=== PATIENT | female | born 1995 | race Caucasian/White ===

== ENCOUNTER 2017-10-24 10:08 | Inpatient (IN) | payer MEDICAID ==
[~2017-10-24] VITALS: Ht 157.5 cm; Wt 95.5 kg
[2017-10-24] VITALS (23 sets, daily range): BP systolic 86–128; BP diastolic 47–72
[2017-10-24 11:16] LABS: BASOPHILS % (AUTO) 0.3 % (0-1); EOSINOPHILS # (AUTO) 0.3 X10'3 (0-0.9); EOSINOPHILS % (AUTO) 1.8 % (0-6); HEMATOCRIT 43.7 % (35.0-45.0); HEMOGLOBIN 14.9 g/dl (12.0-16.0); LYMPHOCYTES # (AUTO) 1.5 X10'3 (1.1-4.8); LYMPHOCYTES % (AUTO) 10.5 % (21-51); MEAN CORPUSCULAR HGB CONC 34.1 % (33.0-36.5); MEAN CORPUSCULAR VOLUME 79.1 FL (78-98); MEAN PLATELET VOLUME 9.4 FL (7.4-10.4); MONOCYTES # (AUTO) 0.8 X10'3 (0-0.9); MONOCYTES % (AUTO) 5.6 % (2-12); NEUTROPHILS # (AUTO) 11.6 X10'3 (1.8-7.7); NEUTROPHILS % (AUTO) 81.8 % (42-75); PLATELET COUNT 208 X10'3 (140-440); RED BLOOD COUNT 5.53 X10'6 (4.20-5.60); RED CELL DISTRIBUTION WIDTH 15.2 % (11.5-14.5); WHITE BLOOD COUNT 14.1 X10'3 (4.5-11.0)
[2017-10-24 11:23] LABS: CLARITY,URINE CLOUDY (Clear); GLUCOSE, URINE NEGATIVE (Neg); KETONES,URINE >=80 mg/dl (Neg); LEUKOCYTE ESTERASE ,URINE MODERATE (Neg); NITRITES, URINE NEGATIVE (Neg); OCCULT BLOOD,URINE SMALL (Neg); PROTEIN,URINE 30 mg/dl (Neg)
[2017-10-24 11:27] LABS: COLOR,URINE DARK YELLOW (Yellow); UA COLLECTION TYPE CLN CATCH MIDSTREAM
[2017-10-24 11:27] LABS: PROTHROMBIN TIME 10.5 SECONDS (9.0-12.0)
[2017-10-24 11:32] LABS: ALANINE AMINOTRANSFERASE 28 U/L (12-78); ALBUMIN 3.9 G/DL (3.4-5.0); ALBUMIN/GLOBULIN RATIO 0.8 (1.1-1.5); ALKALINE PHOSPHATASE 62 IU/L (20-180); ANION GAP 12 (8-16); ASPARTATE AMINO TRANSFERASE 18 U/L (10-37); BILIRUBIN,TOTAL 1.4 MG/DL (0.1-1.0); BLOOD UREA NITROGEN 11 MG/DL (7-18); BUN/CREATININE RATIO 14.5 (6.6-38.0); CALCIUM 9.1 MG/DL (8.5-10.1); CHLORIDE 98 MMOL/L (99-107); CREATININE 0.76 MG/DL (0.40-0.90); GLUCOSE 102 MG/DL (70-104); POTASSIUM 4.2 MMOL/L (3.5-5.1); SODIUM 135 MMOL/L (135-145); TOTAL PROTEIN 8.5 G/DL (6.4-8.2); eGFR > 90 ML/MIN
[2017-10-24 11:33] LABS: BACTERIA,URINE 3+ /HPF (Neg); MUCUS STRANDS MANY /LPF (Neg); SQUAMOUS EPITHELIAL CELL,UR MANY /LPF (FEW)
[2017-10-24] MEDS ORDERED: morphine 4 MG/ML inj SYRINge IV ONE (12:35)
[2017-10-24] MEDS ORDERED: ondansetron/PF 4mg/2ml inj IV ONE (12:35)
[2017-10-24] MEDS ORDERED: normal saline 1000ML IV soln IVB ONE (12:35)
[2017-10-24] MEDS ORDERED: ketorolac tromethamine 15mg/ml inj. IV ONE (12:35)
[2017-10-24 12:59] LABS: URINE HCG NEGATIVE (NEG)
[2017-10-24] MEDS ORDERED: BUPIVAcaine/PF 2.5 mg/ml (0.25%) 30ml vial ONE (14:17)
[2017-10-24] MEDS ORDERED: ringers solution, lacted 1,000 ML IV SCH (14:38)
[2017-10-24] MEDS ORDERED: proCHLORperazine 10 MG/2 ml inj IV PRN (14:40)
[2017-10-24] MEDS ORDERED: meperidine/PF 50mg/ml syringe IV PRN ×3 (14:40)
[2017-10-24] MEDS ORDERED: morphine 4 MG/ML inj SYRINge IV PRN ×3 (14:40→18:10)
[2017-10-24] MEDS ORDERED: ondansetron/PF 4mg/2ml inj IV PRN (14:40)
[2017-10-24] MEDS ORDERED: fentaNYL/PF 50MCG/1 ML 2ML syringe ONE (14:46)
[2017-10-24] MEDS ORDERED: rocuronium 10mg/ml inj IV ONE (14:47)
[2017-10-24] MEDS ORDERED: midazolam 2 mg/2 ml injection ONE (14:47)
[2017-10-24] MEDS ORDERED: propofol inj 20 ML IV ONE (14:48)
[2017-10-24] MEDS ORDERED: ceFOXitin 1000 MG inj ONE ×2 (15:00)
[2017-10-24] MEDS ORDERED: glycopyrrolate 0.2mg/ml inj ONE (15:56)
[2017-10-24] MEDS ORDERED: neostigmine methylsulfate 1 MG/ML 10ml vial ONE (15:56)
[2017-10-24] MEDS ORDERED: ketorolac tromethamine 15mg/ml inj. IV PRN (16:05)
[2017-10-24] MEDS ORDERED: HYDROmorphone inj. 0.5 MG/0.5 ML DISP.SYRIN IV PRN (16:05)
[2017-10-24] MEDS ORDERED: acetaminophen 1,000mg/100ml IV 100 ML IV SCH (16:20)
[2017-10-24] MEDS: dextrose 5%-1/2 normal saline 1,000 ML IV SCH (18:09)
[2017-10-24] MEDS ORDERED: potassium Cl 40MEQ/NS 500ml 500 ML IV PRN ×2 (18:10)
[2017-10-24] MEDS ORDERED: mag hydrox/Alum hydrox/simeth 30ml oral suspension PO PRN (18:10)
[2017-10-24] MEDS ORDERED: potassium Cl 20 mEq SR tablet PO PRN ×2 (18:10)
[2017-10-24] MEDS ORDERED: magnesium 2GM in 50ml NS 50 ML IV PRN (18:10)
[2017-10-24] MEDS ORDERED: magnesium 4gm in 100ml NS 100 ML IV PRN (18:10)
[2017-10-24] MEDS ORDERED: acetaminophen 325mg tablet PO PRN (18:10)
[2017-10-24] MEDS ORDERED: magnesium Cl slow-release 64mg tablet PO PRN (18:10)
[2017-10-24] MEDS ORDERED: magnesium hydroxide 30ml (MOM) UD suspension PO PRN (18:10)
[2017-10-24] MEDS: ondansetron/PF 4mg/2ml inj IV PRN (20:00)
[2017-10-24] MEDS ORDERED: ceFOXitin 2 GM ADDvantage bag 100 ML IV SCH (20:00)
[2017-10-24] MEDS ORDERED: NO HOME MEDS (21:11)
[2017-10-24] MEDS: HYDROcodone/acetaminophen 10/325mg tab PO PRN (23:02)
[2017-10-24] MEDS: potassium CL 20mEq in D5-1/2NS 1,000 ML IV SCH (23:03)
[2017-10-25] VITALS: BP 111/55
[2017-10-25] MEDS: potassium CL 20mEq in D5-1/2NS 1,000 ML IV SCH ×2 (00:03→08:27)
[2017-10-25] MEDS: morphine 4 MG/ML inj SYRINge IV PRN ×2 (00:11→07:28)
[2017-10-25] MEDS: ceFOXitin 1 GM ADDVANTAGE BAG 1,000 MG in normal saline 100ml IV soln 100 ML IV SCH ×2 (00:30→08:26)
[2017-10-25] MEDS: dextrose 5%-1/2 normal saline 1,000 ML IV SCH ×3 (04:09→17:07)
[2017-10-25] MEDS: HYDROcodone/acetaminophen 10/325mg tab PO PRN ×2 (05:02→19:07)
[2017-10-25 05:05] VITALS: BP 113/69
[2017-10-25 05:31] LABS: BASOPHILS % (AUTO) 0.4 % (0-1); EOSINOPHILS % (AUTO) 0 % (0-6); HEMATOCRIT 30.6 % (35.0-45.0); HEMOGLOBIN 10.7 g/dl (12.0-16.0); LYMPHOCYTES % (AUTO) 11.8 % (21-51); MEAN CORPUSCULAR HEMOGLOBIN 27.9 PG (27.0-31.0); MEAN CORPUSCULAR HGB CONC 34.9 % (33.0-36.5); MEAN CORPUSCULAR VOLUME 80.1 FL (78-98); MEAN PLATELET VOLUME 10.1 FL (7.4-10.4); MONOCYTES # (AUTO) 0.5 X10'3 (0-0.9); MONOCYTES % (AUTO) 5.8 % (2-12); PLATELET COUNT 151 X10'3 (140-440); RED BLOOD COUNT 3.82 X10'6 (4.20-5.60); RED CELL DISTRIBUTION WIDTH 15.4 % (11.5-14.5); WHITE BLOOD COUNT 8.5 X10'3 (4.5-11.0)
[2017-10-25 05:38] LABS: ALANINE AMINOTRANSFERASE 20 U/L (12-78); ALBUMIN 2.4 G/DL (3.4-5.0); ALBUMIN/GLOBULIN RATIO 0.7 (1.1-1.5); ALKALINE PHOSPHATASE 42 IU/L (20-180); ANION GAP 9 (8-16); ASPARTATE AMINO TRANSFERASE 14 U/L (10-37); BILIRUBIN,TOTAL 1.3 MG/DL (0.1-1.0); BLOOD UREA NITROGEN 8 MG/DL (7-18); BUN/CREATININE RATIO 11.4 (6.6-38.0); CALCIUM 7.5 MG/DL (8.5-10.1); CHLORIDE 102 MMOL/L (99-107); GLUCOSE 160 MG/DL (70-104); MAGNESIUM 1.7 MG/DL (1.5-2.4); POTASSIUM 3.8 MMOL/L (3.5-5.1); SODIUM 135 MMOL/L (135-145); TOTAL CARBON DIOXIDE 24.2 MMOL/L (24-32); TOTAL PROTEIN 5.9 G/DL (6.4-8.2); eGFR > 90 ML/MIN
[2017-10-25] MEDS: K and/or MAG REPLACEMENT MC SCH (07:13)
[2017-10-25 07:20] VITALS: BP 114/57
[2017-10-25 07:30] VITALS: BP 114/57
[2017-10-25 12:04] VITALS: BP 120/71
[2017-10-25 13:50] LABS: BASOPHILS % (AUTO) 0.3 % (0-1); EOSINOPHILS # (AUTO) 0.1 X10'3 (0-0.9); EOSINOPHILS % (AUTO) 1.2 % (0-6); HEMATOCRIT 31.7 % (35.0-45.0); HEMOGLOBIN 10.6 g/dl (12.0-16.0); LYMPHOCYTES % (AUTO) 14.6 % (21-51); MEAN CORPUSCULAR HEMOGLOBIN 27.2 PG (27.0-31.0); MEAN CORPUSCULAR HGB CONC 33.6 % (33.0-36.5); MEAN CORPUSCULAR VOLUME 81.1 FL (78-98); MEAN PLATELET VOLUME 9.5 FL (7.4-10.4); MONOCYTES # (AUTO) 0.5 X10'3 (0-0.9); MONOCYTES % (AUTO) 7.1 % (2-12); NEUTROPHILS # (AUTO) 5.5 X10'3 (1.8-7.7); NEUTROPHILS % (AUTO) 76.8 % (42-75); PLATELET COUNT 150 X10'3 (140-440); RED BLOOD COUNT 3.91 X10'6 (4.20-5.60); WHITE BLOOD COUNT 7.2 X10'3 (4.5-11.0)
[2017-10-25] MEDS ORDERED: levoFLOXACIN-Levaquin 500mg/D5 100 ML IV SCH (18:30)
[2017-10-25] MEDS ORDERED: metroNIDAZOLE-Flagyl 500mg/NS 100 ML IV SCH (18:30)
[2017-10-25 19:00] VITALS: BP 118/50
[2017-10-25] MEDS: Potassium Cl inj 20 MEQ in normal saline 1000ml 990 ML IV SCH (19:06)
[2017-10-25] MEDS: lactobacillus rhamnosus 10,000 MMU CELLS/CAPSULE PO SCH (20:54)
[2017-10-25] MEDS: levoFLOXACIN-Levaquin 500mg/D5 100 ML IV SCH (20:57)
[2017-10-26] VITALS: BP 115/60
[2017-10-26] MEDS: metroNIDAZOLE-Flagyl 500mg/NS 100 ML IV SCH ×4 (00:31→23:41)
[2017-10-26] MEDS: HYDROcodone/acetaminophen 10/325mg tab PO PRN ×3 (00:38→19:19)
[2017-10-26 05:40] LABS: BASOPHILS % (AUTO) 0.5 % (0-1); EOSINOPHILS # (AUTO) 0.1 X10'3 (0-0.9); EOSINOPHILS % (AUTO) 1.4 % (0-6); HEMATOCRIT 31.8 % (35.0-45.0); HEMOGLOBIN 10.9 g/dl (12.0-16.0); LYMPHOCYTES # (AUTO) 2.1 X10'3 (1.1-4.8); LYMPHOCYTES % (AUTO) 26.4 % (21-51); MEAN CORPUSCULAR HEMOGLOBIN 27.8 PG (27.0-31.0); MEAN CORPUSCULAR HGB CONC 34.4 % (33.0-36.5); MEAN CORPUSCULAR VOLUME 80.9 FL (78-98); MONOCYTES # (AUTO) 0.6 X10'3 (0-0.9); MONOCYTES % (AUTO) 7.5 % (2-12); NEUTROPHILS # (AUTO) 5.1 X10'3 (1.8-7.7); NEUTROPHILS % (AUTO) 64.2 % (42-75); PLATELET COUNT 176 X10'3 (140-440); RED BLOOD COUNT 3.93 X10'6 (4.20-5.60); RED CELL DISTRIBUTION WIDTH 15.7 % (11.5-14.5)
[2017-10-26 06:04] LABS: ALANINE AMINOTRANSFERASE 26 U/L (12-78); ALBUMIN 2.5 G/DL (3.4-5.0); ALBUMIN/GLOBULIN RATIO 0.6 (1.1-1.5); ALKALINE PHOSPHATASE 59 IU/L (20-180); ANION GAP 8 (8-16); ASPARTATE AMINO TRANSFERASE 21 U/L (10-37); BLOOD UREA NITROGEN 5 MG/DL (7-18); BUN/CREATININE RATIO 6.8 (6.6-38.0); CALCIUM 8.4 MG/DL (8.5-10.1); CHLORIDE 104 MMOL/L (99-107); CREATININE 0.73 MG/DL (0.40-0.90); GLUCOSE 98 MG/DL (70-104); MAGNESIUM 1.9 MG/DL (1.5-2.4); SODIUM 138 MMOL/L (135-145); TOTAL CARBON DIOXIDE 26.2 MMOL/L (24-32); TOTAL PROTEIN 6.7 G/DL (6.4-8.2); eGFR > 90 ML/MIN
[2017-10-26] MEDS: K and/or MAG REPLACEMENT MC SCH (08:00)
[2017-10-26] MEDS: ondansetron/PF 4mg/2ml inj IV PRN (08:07)
[2017-10-26 08:31] VITALS: BP 107/59
[2017-10-26] MEDS: lactobacillus rhamnosus 10,000 MMU CELLS/CAPSULE PO SCH ×2 (08:36→19:18)
[2017-10-26] MEDS: Potassium Cl inj 20 MEQ in normal saline 1000ml 990 ML IV SCH (08:48)
[2017-10-26 12:27] VITALS: BP 114/68
[2017-10-26 18:30] VITALS: BP 111/66
[2017-10-26] MEDS: levoFLOXACIN-Levaquin 500mg/D5 100 ML IV SCH (21:36)
[2017-10-27] VITALS: BP 107/57
[2017-10-27] MEDS: HYDROcodone/acetaminophen 10/325mg tab PO PRN ×2 (05:29→16:13)
[2017-10-27 05:38] LABS: BASOPHILS % (AUTO) 0.3 % (0-1); EOSINOPHILS # (AUTO) 0.2 X10'3 (0-0.9); HEMATOCRIT 30.1 % (35.0-45.0); LYMPHOCYTES # (AUTO) 1.3 X10'3 (1.1-4.8); MEAN CORPUSCULAR HEMOGLOBIN 27.1 PG (27.0-31.0); MEAN CORPUSCULAR HGB CONC 33.4 % (33.0-36.5); MEAN CORPUSCULAR VOLUME 81.3 FL (78-98); MEAN PLATELET VOLUME 9.5 FL (7.4-10.4); MONOCYTES # (AUTO) 0.5 X10'3 (0-0.9); MONOCYTES % (AUTO) 6.4 % (2-12); NEUTROPHILS % (AUTO) 71.3 % (42-75); PLATELET COUNT 186 X10'3 (140-440)
[2017-10-27 05:57] LABS: ALANINE AMINOTRANSFERASE 35 U/L (12-78); ALBUMIN 2.4 G/DL (3.4-5.0); ALBUMIN/GLOBULIN RATIO 0.6 (1.1-1.5); ALKALINE PHOSPHATASE 75 IU/L (20-180); ANION GAP 9 (8-16); ASPARTATE AMINO TRANSFERASE 33 U/L (10-37); BILIRUBIN,TOTAL 0.7 MG/DL (0.1-1.0); BLOOD UREA NITROGEN 7 MG/DL (7-18); BUN/CREATININE RATIO 9.6 (6.6-38.0); CALCIUM 8.5 MG/DL (8.5-10.1); CHLORIDE 102 MMOL/L (99-107); CREATININE 0.73 MG/DL (0.40-0.90); GLUCOSE 100 MG/DL (70-104); MAGNESIUM 1.7 MG/DL (1.5-2.4); POTASSIUM 4.1 MMOL/L (3.5-5.1); SODIUM 139 MMOL/L (135-145); TOTAL CARBON DIOXIDE 27.9 MMOL/L (24-32); TOTAL PROTEIN 6.4 G/DL (6.4-8.2); eGFR > 90 ML/MIN
[2017-10-27] MEDS: K and/or MAG REPLACEMENT MC SCH (06:30)
[2017-10-27 07:25] VITALS: BP 128/68
[2017-10-27] MEDS: lactobacillus rhamnosus 10,000 MMU CELLS/CAPSULE PO SCH ×2 (07:31→20:58)
[2017-10-27] MEDS: metroNIDAZOLE-Flagyl 500mg/NS 100 ML IV SCH ×3 (07:32→23:36)
[2017-10-27 11:43] VITALS: BP 115/74
[2017-10-27 15:20] VITALS: BP 109/73
[2017-10-27 18:00] VITALS: BP 137/69
[2017-10-27] MEDS: levoFLOXACIN-Levaquin 500mg/D5 100 ML IV SCH (20:59)
[2017-10-27] MEDS: ondansetron/PF 4mg/2ml inj IV PRN (22:48)
[2017-10-28] VITALS: BP 118/63
[2017-10-28] MEDS: HYDROcodone/acetaminophen 10/325mg tab PO PRN (05:31)
[2017-10-28 05:36] LABS: ALANINE AMINOTRANSFERASE 31 U/L (12-78); ALBUMIN 2.5 G/DL (3.4-5.0); ALBUMIN/GLOBULIN RATIO 0.6 (1.1-1.5); ALKALINE PHOSPHATASE 70 IU/L (20-180); ANION GAP 7 (8-16); ASPARTATE AMINO TRANSFERASE 18 U/L (10-37); BILIRUBIN,TOTAL 0.5 MG/DL (0.1-1.0); BLOOD UREA NITROGEN 8 MG/DL (7-18); BUN/CREATININE RATIO 11.8 (6.6-38.0); CALCIUM 8.6 MG/DL (8.5-10.1); CHLORIDE 104 MMOL/L (99-107); CREATININE 0.68 MG/DL (0.40-0.90); GLUCOSE 110 MG/DL (70-104); MAGNESIUM 1.9 MG/DL (1.5-2.4); POTASSIUM 4.2 MMOL/L (3.5-5.1); SODIUM 139 MMOL/L (135-145); TOTAL CARBON DIOXIDE 27.7 MMOL/L (24-32); TOTAL PROTEIN 6.6 G/DL (6.4-8.2); eGFR > 90 ML/MIN
[2017-10-28 07:00] VITALS: BP 111/67
[2017-10-28] MEDS: K and/or MAG REPLACEMENT MC SCH (08:00)
[2017-10-28 10:23] LABS: BASOPHILS % (AUTO) 0.6 % (0-1); EOSINOPHILS # (AUTO) 0.1 X10'3 (0-0.9); EOSINOPHILS % (AUTO) 1.9 % (0-6); HEMOGLOBIN 10.4 g/dl (12.0-16.0); LYMPHOCYTES # (AUTO) 1.3 X10'3 (1.1-4.8); LYMPHOCYTES % (AUTO) 20.4 % (21-51); MEAN CORPUSCULAR HEMOGLOBIN 27.4 PG (27.0-31.0); MEAN CORPUSCULAR HGB CONC 34.6 % (33.0-36.5); MEAN CORPUSCULAR VOLUME 79.3 FL (78-98); MEAN PLATELET VOLUME 8.4 FL (7.4-10.4); MONOCYTES # (AUTO) 0.4 X10'3 (0-0.9); MONOCYTES % (AUTO) 5.8 % (2-12); NEUTROPHILS # (AUTO) 4.5 X10'3 (1.8-7.7); NEUTROPHILS % (AUTO) 71.3 % (42-75); PLATELET COUNT 240 X10'3 (140-440); RED BLOOD COUNT 3.78 X10'6 (4.20-5.60); RED CELL DISTRIBUTION WIDTH 15.2 % (11.5-14.5); WHITE BLOOD COUNT 6.4 X10'3 (4.5-11.0)
[2017-10-28] MEDS: metroNIDAZOLE-Flagyl 500mg/NS 100 ML IV SCH (10:48)
[2017-10-28] MEDS: lactobacillus rhamnosus 10,000 MMU CELLS/CAPSULE PO SCH (10:49)
[2017-10-28 11:00] VITALS: BP 108/68
[2017-10-28] MEDS ORDERED: magnesium citrate 296ml oral solution PO ONE (13:10)
[2017-10-28] MEDS ORDERED: DOCU-28 PO (13:21)
[2017-10-28] MEDS ORDERED: METR500T4 PO (13:21)
[2017-10-28] MEDS ORDERED: HYDR-3972 PO (13:21)
[2017-10-28] MEDS ORDERED: LEVO500T2 PO (13:21)
[2017-10-28] MEDS ORDERED: metroNIDAZOLE 500mg tablet PO SCH (17:30)
[2017-10-29] MEDS ORDERED: levoFLOXACIN 500mg tablet PO SCH (11:00)
== END 2017-10-28 14:30 | disposition home or self-care (01) | DRG 710 ==
LOC: ER 10:08 → SUR 3N 18:12
PROVIDERS: ADMIT Legal Medicine; ATTEND Internal Medicine
PROC: 0DTJ4ZZ Resection of Appendix, Percutaneous Endoscopic Approach (ICD-10-PCS; principal; 2017-10-24 14:43)
DX: A41.9 Sepsis, unspecified organism (principal); K35.2 Acute appendicitis with generalized peritonitis; E66.9 Obesity, unspecified; Z68.38 Body mass index [BMI] 38.0-38.9, adult
CPT/HCPCS: 36415; 74176; 80053; 81001; 81025; 83735; 85025; 85610; 87070; 99285; A4315; A6212; A6251; A6257; A6258; A6402; A6449; A7000; J0131; J0694; J0780; J1885; J1956; J2250; J2270; J2405; J2704; J2710; J3010; J3480; J3490; J7030; J7120

== ENCOUNTER 2017-11-12 15:40 | Emergency (ER) | payer MEDICAID, OTHER ==
[~2017-11-12] VITALS: Ht 157.5 cm; Wt 95.0 kg
[~2017-11-12 15:40] MED LIST: DOCU-28 PO; HYDR-3972 PO; LEVO500T2 PO; METR500T4 PO
[2017-11-12] MEDS ORDERED: sulfamethoxazole/trimethoprim DS (800/160mg) tablet PO ONE (16:30)
[2017-11-12] MEDS ORDERED: SULF1TAB48 PO (16:31)
[2017-11-12 16:46] VITALS: BP 125/83
== END 2017-11-12 16:59 | disposition home or self-care (01) ==
LOC: ER 15:40
DX: T81.4XXA Infection following a procedure, initial encounter (principal); L03.311 Cellulitis of abdominal wall; F17.200 Nicotine dependence, unspecified, uncomplicated
CPT/HCPCS: 99283

== ENCOUNTER 2018-05-07 10:39 | Emergency (ER) | payer MEDICAID, OTHER ==
[~2018-05-07] VITALS: Ht 167.6 cm; Wt 100.0 kg
[~2018-05-07 10:39] MED LIST changes: -LEVO500T2 PO; -METR500T4 PO
[2018-05-07 11:30] VITALS: BP 153/86
== END 2018-05-07 12:57 | disposition home or self-care (01) ==
LOC: ER 10:40
DX: S70.11XA Contusion of right thigh, initial encounter (principal); S10.83XA Contusion of other specified part of neck, initial encounter; S20.211A Contusion of right front wall of thorax, initial encounter; Z90.49 Acquired absence of other specified parts of digestive tract; Z79.899 Other long term (current) drug therapy; V49.9XXA Car occupant (driver) (passenger) injured in unspecified traffic accident, initial encounter; Y93.89 Activity, other specified; Y92.410 Unspecified street and highway as the place of occurrence of the external cause; Y99.8 Other external cause status
CPT/HCPCS: 99281

== ENCOUNTER 2019-09-22 14:42 | Emergency (ER) | payer OTHER ==
[~2019-09-22] VITALS: Ht 157.5 cm; Wt 100.0 kg
[2019-09-22 15:02] VITALS: BP 136/74
[2019-09-22 15:39] LABS: URINE HCG NEGATIVE (NEG)
[2019-09-22 15:42] LABS: CLARITY,URINE TURBID (Clear); COLOR,URINE YELLOW (Yellow); GLUCOSE, URINE NEGATIVE (Neg); KETONES,URINE NEGATIVE (Neg); LEUKOCYTE ESTERASE ,URINE LARGE (Neg); NITRITES, URINE POSITIVE (Neg); OCCULT BLOOD,URINE MODERATE (Neg); PH,URINE 7.5 (4.8-8.0); PROTEIN,URINE 100 mg/dl (Neg); UA COLLECTION TYPE CLN CATCH MIDSTREAM
[2019-09-22] MEDS ORDERED: NITR100C6 PO (15:42)
[2019-09-22] MEDS ORDERED: nitrofuran/nitrofuran macrocrysal 100 MG capsule PO ONE (15:45)
[2019-09-22 16:00] LABS: BACTERIA,URINE 2+ /HPF (Neg); SQUAMOUS EPITHELIAL CELL,UR MODERATE /LPF (FEW); WBC,URINE TNTC /HPF (0-4)
[2019-09-22 16:01] LABS: WBC CLUMPS,URINE MANY /HPF (NEGATIVE)
== END 2019-09-22 16:03 | disposition home or self-care (01) ==
LOC: ER 14:43
DX: N39.0 Urinary tract infection, site not specified (principal); R10.30 Lower abdominal pain, unspecified; Z90.49 Acquired absence of other specified parts of digestive tract; Z79.899 Other long term (current) drug therapy
CPT/HCPCS: 81001; 81025; 87077; 87088; 87186; 99283

== ENCOUNTER 2020-02-12 11:27 | Emergency (ER) | payer SELFPAY ==
[~2020-02-12] VITALS: Ht 157.5 cm; Wt 100.0 kg
[~2020-02-12 11:27] MED LIST changes: +NITR100C6 PO
[2020-02-12 12:05] VITALS: BP 139/89
[2020-02-12] MEDS ORDERED: LIDOcaine Viscous 15ml cup MM PRN (13:40)
[2020-02-12] MEDS ORDERED: CHLO473M3 PO (13:47)
[2020-02-12] MEDS ORDERED: PENI500T2 PO (13:47)
[2020-02-12] MEDS ORDERED: IBUP-1984 PO (13:47)
== END 2020-02-12 14:04 | disposition home or self-care (01) ==
LOC: ER 11:27
DX: K08.89 Other specified disorders of teeth and supporting structures (principal); Z90.49 Acquired absence of other specified parts of digestive tract; Z98.890 Other specified postprocedural states
CPT/HCPCS: 99283